=== PATIENT | female | born 1930 | race Caucasian/White ===

== ENCOUNTER 2016-06-25 19:52 | Inpatient (IN) ==
[2016-06-25] MEDS ORDERED: 0.9 % SODIUM CHLORIDE 1,000 ML IV ONE (20:23)
--- NOTE | 2016-06-25 20:26 | Emergency Department Note ---
Female Urogenital HPI - General Chief complaint: Urogenital-Female Stated complaint: UTI symptoms Time Seen by Provider: 06/25/16 20:23 Source: family Mode of arrival: wheelchair Limitations: no limitations - History of Present Illness HPI Narrative: Him on a dysphasia secondary to an ER in [place] and diagnosed with UTI however the culture did not grow any pathologic bacteria. Cephalosporin for couple days perked up and felt quite a bit better. However today she developed diarrhea and weakness and was brought over here by son to visit another son. She denies any pain anywhere minimal cough. - Related Data Home Medications Medication Instructions Recorded Confirmed Acetaminophen [Acetaminophen Extra 500 mg PO PRN PRN 06/26/16 06/26/16 Strength] Ascorbic Acid [Vitamin C] 06/26/16 Calcium 600 + Vit D Tablet 600 PO HS 06/26/16 Cefdinir 300 mg PO BID 06/26/16 06/26/16 Losartan [Cozaar] 25 mg PO DAILY 06/26/16 06/26/16 Allergies Allergy/AdvReac Type Severity Reaction Status Date / Time codeine Allergy Verified 06/25/16 19:58 Review of Systems Constitutional: Denies: fever, chills Eyes: Denies: eye pain ENT ED: Denies: ear pain Cardiovascular: Denies: chest pain Respiratory: Reports: cough. Denies: dyspnea Gastrointestinal: Reports: diarrhea. Denies: abdominal pain, nausea Genitourinary: Denies: urgency, dysuria, frequency Musculoskeletal: Denies: back pain Integumentary: Denies: rash Neurological: Denies: headache Past Medical History - Past Medical History Medical history: Reports: hypertension, valvular heart disease (rheumatic fever) Surgical history ED: Reports: appendectomy, hysterectomy Physical Exam - General Limitations: no limitations General appearance: alert - Head Head exam: atraumatic - Eye Eye exam: Present: normal appearance - ENT ENT exam: mucous membranes dry - Neck Neck exam: Present: normal inspection - Chest Chest inspection: Present: normal inspection - Respiratory Respiratory exam: Present: normal lung sounds bilaterally - Cardiovascular Cardiovascular exam: Present: regular rate, normal rhythm, systolic murmur - Abdominal Exam Abdominal exam: Present: soft. Absent: distention, tenderness - Neurological Exam Neurological exam: Present: alert - Expanded Neurological Exam Cranial nerves: facial palsy (VII): Normal Motor strength - LUE: 5/5 Motor strength - RUE: 5/5 - Psychiatric Psychiatric exam: Present: normal affect, normal mood - Skin Skin exam: Present: warm, dry Course Vital Signs Temperature 98.3 F 06/25/16 19:59 Pulse Rate 81 06/25/16 19:59 Respiratory Rate 19 06/25/16 19:59 Blood Pressure 154/76 06/25/16 19:59 Pulse Oximetry (%) 98 06/25/16 19:59 Temperature 98.6 F 06/26/16 03:53 Pulse Rate 76 06/26/16 03:53 Respiratory Rate 20 06/26/16 03:53 Blood Pressure 150/68 06/26/16 03:53 Pulse Oximetry (%) 95 06/26/16 03:53 Urogenital-Female - MDM Narrative Medical decision making narrative: This patient has had a diarrheal syndrome today which has made her very weak. She is unable to walk. She is dehydrated. I did give her Levaquin empirically given her high white count and diarrhea. She will be admitted to the hospital. - Lab Data Lab results reviewed: Yes I reviewed the patient's lab results. Result diagrams: 06/26/16 04:15 06/26/16 04:15 Lab Results 06/25/16 06/25/16 06/25/16 Range/Units 20:15 20:15 20:15 WBC 15.8 H (4.5-11.0) K/mcL RBC 4.02 (4.00-5.20) M/mcL Hgb 11.7 L (12.0-15.0) g/dL Hct 36.2 (36.0-48.0) % MCV 89.9 (80.0-100.0) fL MCH 29.0 (26.0-34.0) pg MCHC 32.3 (31.0-36.0) g/dL RDW 11.6 (11.5-14.5) % Plt Count 246 (140-440) K/mcL MPV 7.9 (7.4-10.4) fL Total Counted 100 Seg Neutrophils % 88 H (38-78) % Band Neutrophils % 4 (0-10) % Lymphocytes % 2 L (15-49) % Monocytes % (Manual) 5 (1-9) % Eosinophils % (Manual) 1 (0-7) % WBC Morphology Normal (NORMAL) Platelet Estimate Normal (NORMAL) RBC Morphology Normal (NORMAL) VBG Lactic Acid 1.1 (0.5-2.2) mmol/L Sodium 134 (133-145) mmol/L Potassium 4.4 (3.3-5.1) mmol/L Chloride 95 L (96-108) mmol/L Carbon Dioxide 23 (22-30) mmol/L Anion Gap 16.0 (8-16) BUN 25 H (8-23) mg/dl Creatinine 1.0 (0.6-1.1) mg/dl GFR Calculation 52 Glucose 120 H (70-105) mg/dL Calcium 8.8 (8.6-10.4) mg/dl Total Bilirubin 0.3 (0.0-1.0) mg/dL AST 18 (0-37) U/l ALT 13 (0-40) U/l Alkaline Phosphatase 105 (39-117) U/L Total Protein 6.4 (5.9-8.4) gm/dL Albumin 3.0 L (3.2-5.2) gm/dL Globulin 3.4 (2.2-3.7) gm/dL Albumin/Globulin Ratio 0.9 L (1.0-2.3) Urine Color Urine Appearance Urine pH (5.0-9.0) Ur Specific [place] (1.000-1.035) Urine Protein (NEG) mg/dL Urine Glucose (UA) (NEG) mg/dL Urine Ketones (NEG) mg/dL Urine Occult Blood (<0.03) mg/dL Urine Nitrate (NEG) Urine Bilirubin (NEG) mg/dL Urine Urobilinogen (NEG) mg/dL Ur Leukocyte Esterase (NEG) /uL Urine RBC (0-1) /hpf Urine WBC (0-4) /hpf Ur Squamous Epith Cells (0-4) /hpf Ur Transition Epith Cell (0-2) /hpf Amorphous Crystals (0) /hpf Urine Bacteria (0) /hpf Hyaline Casts (0-2) /lpf Urine Mucus (0) /hpf Ur Culture Indicated? 06/25/16 Range/Units 20:23 WBC (4.5-11.0) K/mcL RBC (4.00-5.20) M/mcL Hgb (12.0-15.0) g/dL Hct (36.0-48.0) % MCV (80.0-100.0) fL MCH (26.0-34.0) pg MCHC (31.0-36.0) g/dL RDW (11.5-14.5) % Plt Count (140-440) K/mcL MPV (7.4-10.4) fL Total Counted Seg Neutrophils % (38-78) % Band Neutrophils % (0-10) % Lymphocytes % (15-49) % Monocytes % (Manual) (1-9) % Eosinophils % (Manual) (0-7) % WBC Morphology (NORMAL) Platelet Estimate (NORMAL) RBC Morphology (NORMAL) VBG Lactic Acid (0.5-2.2) mmol/L Sodium (133-145) mmol/L Potassium (3.3-5.1) mmol/L Chloride (96-108) mmol/L Carbon Dioxide (22-30) mmol/L Anion Gap (8-16) BUN (8-23) mg/dl Creatinine (0.6-1.1) mg/dl GFR Calculation Glucose (70-105) mg/dL Calcium (8.6-10.4) mg/dl Total Bilirubin (0.0-1.0) mg/dL AST (0-37) U/l ALT (0-40) U/l Alkaline Phosphatase (39-117) U/L Total Protein (5.9-8.4) gm/dL Albumin (3.2-5.2) gm/dL Globulin (2.2-3.7) gm/dL Albumin/Globulin Ratio (1.0-2.3) Urine Color Yellow Urine Appearance Hazy Urine pH 5.0 (5.0-9.0) Ur Specific [place] 1.024 (1.000-1.035) Urine Protein 30 A (NEG) mg/dL Urine Glucose (UA) 50 A (NEG) mg/dL Urine Ketones 20 A (NEG) mg/dL Urine Occult Blood 0.03 A (<0.03) mg/dL Urine Nitrate Neg (NEG) Urine Bilirubin Neg (NEG) mg/dL Urine Urobilinogen Neg (NEG) mg/dL Ur Leukocyte Esterase Neg (NEG) /uL Urine RBC 2 H (0-1) /hpf Urine WBC 1 (0-4) /hpf Ur Squamous Epith Cells < 1 (0-4) /hpf Ur Transition Epith Cell < 1 (0-2) /hpf Amorphous Crystals Few A (0) /hpf Urine Bacteria Few A (0) /hpf Hyaline Casts 3 H (0-2) /lpf Urine Mucus Mod (0) /hpf Ur Culture Indicated? Yes Disposition Clinical Impression: Gastroenteritis Disposition: Xfer As Inpt ([facility]) Condition: Good
[2016-06-25 20:58] LABS: Mean Cell Volume 89.9 fL (80.0-100.0); Mean Corpuscular HGB Conc 32.3 g/dL (31.0-36.0); Platelet Count 246 K/mcL (140-440); RBC 4.02 M/mcL (4.00-5.20); Red Cell Distribution Width 11.6 % (11.5-14.5)
[2016-06-25 21:14] LABS: Appearance,Urine HAZY; Bacteria,Urine FEW /hpf (0); Bilirubin,Urine NEG (NEG); Color,Urine YELLOW; Glucose,Urine (UA) 50 mg/dL (NEG); Leukocyte Esterase,Urine NEG /uL (NEG); Mucus,Urine MOD /hpf (0); Nitrate,Urine NEG (NEG); Protein,Urine 30 mg/dL (NEG); Specific Gravity,Urine 1.024 (1.000-1.035); Urine Amorphous Crystals FEW /hpf (0); Urine Blood 0.03 mg/dL (<0.03); Urine Hyaline Cast 3 /lpf (0-2); Urine RBC 2 /hpf (0-1); Urine Squamous Epithelial Cell < 1 /hpf (0-4); Urine Transitional Epi Cells < 1 /hpf (0-2); Urine WBC 1 /hpf (0-4); Urobilinogen,Urine NEG (NEG)
[2016-06-25 21:16] LABS: ALT/SGPT 13 U/l (0-40); Albumin/Globulin Ratio 0.9 (1.0-2.3); Alkaline Phosphatase 105 U/L (39-117); Blood Urea Nitrogen 25 mg/dl (8-23)
[2016-06-25 21:58] LABS: Band Neutrophils % 4 % (0-10); Eosinophils % (Manual) 1 % (0-7); Lymphocytes % 2 % (15-49); Monocytes % (Manual) 5 % (1-9); Platelet Estimate NORMAL (NORMAL); RBC Morphology NORMAL (NORMAL); Segmented Neutrophils % 88 % (38-78)
[2016-06-25] MEDS ORDERED: LEVOFLOXACIN 500 MG/100 ML BAG IV ONE (22:07)
--- NOTE | 2016-06-25 23:49 | Internal Med History&Physical ---
Medical - H&P: HPI Patient information: Note initiated : 06/25/16 at 11:45 pm Service Date, if different from initiated Date: [] Patient: Mary Lou Leiva 85 y/o F admitted on for UTI symptoms. Chief Complaint: [] History of present illness: Ms. Leiva is a 85 year old female with h/o htn, rheumatic fever, presents to the Er with complaints of not feeling well for the last 1 week As per the patient and the son, who was the primary provider of information. The patient last tuesday while walking was confused and started to run, she ran for approximately 20-30 feet and fell down, pt does not have recollection of this. She was later on tuesday taken to the ER where she was diagnosed with UTI, and started on cefdinir. The patent has been taking the antibiotic which apparently helped her for a short duration, but then later she started to develop diarrhea, multiple times a day with stool incontinence, associated with some belching. No blood or mucous in the stools. The patient became more confused again and weak. She notes that she does nt take any medications at home as they react very strongly with her. She avoids to drink excess water as it causes her to urinate often, and she uses pads. She denies any fever or chills, no nausea, no cough, no shortness of breath or chest pains. - Constitutional Constitutional: Present: fatigue, malaise, weakness. Absent: chills, fever(s) - EENT Eyes: Absent: blurry vision, change in vision Nose, mouth and throat: Absent: abnormal hearing, bleeding gums - Cardiovascular Cardiovascular: Absent: chest pain, chest pain at rest, orthopnea, pedal edema, radiating pain, syncope - Respiratory Respiratory: Absent: cough, dyspnea, excessive phlegm production, change in phlegm color - Gastrointestinal Gastrointestinal: Present: diarrhea. Absent: abdominal pain, constipation, nausea, vomiting - Genitourinary Genitourinary: Present: urinary frequency, urinary incontinence - Integumentary Integumentary: Absent: wounds, jaundice - Neurological Neurological: Present: confusion, weakness. Absent: convulsions, disequilibrium , dizziness, focal weakness, headache(s), syncope - Psychiatric Psychiatric: Present: confusion. Absent: behavioral changes, panic attacks - Endocrine Endocrine: Absent: polydipsia, polyphagia, polyuria - Hematologic/Lymphatic Hematologic/Lymphatic: Absent: easy bleeding, easy bruising - Allergic/Immunologic Allergic/Immunologic: Absent: uticaria, wheezing Medical - H&P: PMH Medical history: HTN Rheumatic feer h/op UTI Surgical history: appendectomy hystrectomy gastrectomy? (h/o stomach ulcers) Family history: reviewed and not pertinent Social history: lives with son in [place], planning to move here no smoking social etoh no recreational drugs Medical - H&P: Meds Allergies Allergy/AdvReac Type Severity Reaction Status Date / Time codeine Allergy Verified 06/25/16 19:58 Medical - H&P: Exam - Constitutional Vitals: Temp Pulse Resp BP Pulse Ox 98.3 F 82 19 98/86 96 06/25/16 19:59 06/25/16 23:00 06/25/16 19:59 06/25/16 23:00 06/25/16 23:00 General appearance: cooperative, thin - Head Head exam: Present: atraumatic, normal inspection, normocephalic - Eye Eye exam: Present: PERRL. Absent: periorbital swelling, periorbital tenderness , scleral icterus - ENT ENT exam: Present: mucous membranes dry, normal external ear exam - Neck Neck exam: Present: normal inspection - Respiratory Respiratory exam: Present: normal respiratory exam. Absent: accessory muscle use, rhonchi, stridor, wheezes - Cardiovascular Cardiovascular exam: Present: normal rate and rhythm, +S1, +S2, systolic murmur (aortic region 2/6) - GI/Abdominal GI/Abdominal exam: Present: normal bowel sounds, soft. Absent: guarding, rigid , tenderness - Extremities Exam Extremities exam: Absent: calf tenderness, pedal edema, tenderness - Neurological Exam Neurological exam: Present: alert, CN II-XII intact. Absent: motor sensory deficit - Psychiatric Psychiatric exam: Absent: agitated, anxious, depressed Medical - H&P: Reslt - Labs CBC & Chem 7: 06/25/16 20:15 06/25/16 20:15 Labs: Short CBC 06/25/16 Range/Units 20:15 WBC 15.8 H (4.5-11.0) K/mcL Hgb 11.7 L (12.0-15.0) g/dL Hct 36.2 (36.0-48.0) % Plt Count 246 (140-440) K/mcL BMP 06/25/16 20:15 Sodium 134 Potassium 4.4 Chloride 95 L Carbon Dioxide 23 BUN 25 H Creatinine 1.0 Glucose 120 H Calcium 8.8 Liver Function 06/25/16 Range/Units 20:15 Total Bilirubin 0.3 (0.0-1.0) mg/dL AST 18 (0-37) U/l ALT 13 (0-40) U/l Alkaline Phosphatase 105 (39-117) U/L Albumin 3.0 L (3.2-5.2) gm/dL Urine 06/25/16 Range/Units 20:23 Urine Color Yellow Urine Appearance Hazy Urine pH 5.0 (5.0-9.0) Ur Specific [place] 1.024 (1.000-1.035) Urine Protein 30 A (NEG) mg/dL Urine Glucose (UA) 50 A (NEG) mg/dL Medical - H&P: A/P (1) Urinary tract infection Current visit: Yes Status: Acute (2) Diarrhea Current visit: Yes Status: Acute (3) Sepsis Current visit: Yes Status: Acute (4) Clostridium difficile diarrhea Current visit: Yes Status: Acute (5) Hypertension Current visit: Yes Status: Acute - Narrative A/P Narrative: This is a pleasant 85 yr female who presents to the Er with dehydration, diarrhea, with recent use of antibiotics for UTI. The UA done at [facility] did not grow any specific bacteria. urine culture sent again, Levofloxacin was given in the ER X ray chest shows increased interstitial markings, official read pending. Pt has no resp symptoms Her diarrhea with recent ABX use raises the suspicion for cdiff, stool sent for same, Start on po vancomycin solution For dehydration _ IV fluids for now, HTN - is non compliant with meds, montor for now, consider adding low dose of morenita inhibitor if needed DVT heparin Diet regular Code DNR
[2016-06-26] MEDS ORDERED: LIDOCAINE 1% 20 ML VIAL SQ ONE (00:05)
[2016-06-26] MEDS ORDERED: IOPAMIDOL 100 ML BOTTLE IV ONE (00:05)
[2016-06-26] MEDS ORDERED: ACETAMINOPHEN 325 MG TABLET PO PRN (00:14)
[2016-06-26] MEDS ORDERED: ONDANSETRON 4 MG/2 ML VIAL IV PRN (00:14)
[2016-06-26] MEDS ORDERED: VANCOMYCIN 500 MG VIAL ONE (00:20)
[2016-06-26] MEDS: VANCOMYCIN ORAL SOL 1,000 MG/10 ML BOTTLE PO SCH ×5 (00:25→21:01)
[2016-06-26] MEDS: 0.9 % SODIUM CHLORIDE 1,000 ML IV SCH ×3 (02:09→21:03)
[2016-06-26] MEDS: 0.9 % SODIUM CHLORIDE 10 ML SYRINGE IV SCH ×3 (04:25→21:03)
[2016-06-26 05:39] LABS: Mean Cell Volume 90.1 fL (80.0-100.0); Mean Corpuscular HGB Conc 32.2 g/dL (31.0-36.0); Platelet Count 211 K/mcL (140-440); RBC 3.46 M/mcL (4.00-5.20); Red Cell Distribution Width 11.6 % (11.5-14.5)
[2016-06-26 05:59] LABS: ALT/SGPT 9 U/l (0-40); Albumin 2.6 gm/dL (3.2-5.2); Alkaline Phosphatase 90 U/L (39-117); Bilirubin,Direct < 0.2 mg/dL (0.0-0.3); Blood Urea Nitrogen 20 mg/dl (8-23); Gamma Glutamyl Transpeptidase 41 U/L (5-36); Magnesium 1.8 mg/dL (1.6-2.5); Phosphorous 2.4 mg/dL (2.7-4.5); Uric Acid 3.3 mg/dL (2.5-8.0)
[2016-06-26 06:42] LABS: Band Neutrophils % 1 % (0-10); Eosinophils % (Manual) 2 % (0-7); Lymphocytes % 9 % (15-49); Monocytes % (Manual) 9 % (1-9); Platelet Estimate NORMAL (NORMAL); RBC Morphology NORMAL (NORMAL); Segmented Neutrophils % 79 % (38-78)
[2016-06-26] MEDS: FAMOTIDINE/PF 20 MG/2 ML VIAL IV SCH ×2 (08:37→21:02)
[2016-06-26] MEDS: HEPARIN 5,000 UNIT/ML VIAL SQ SCH ×2 (08:37→21:02)
--- NOTE | 2016-06-26 09:14 | XRay Report ---
HISTORY: Reason for Exam:weak FINDINGS: There are prominent increased interstitial lung markings in both upper lobes. The lungs are mildly hyperinflated. I have no prior study for comparison. The heart size is normal. There is no pleural effusion. There is mild upward retraction of both left and right hilum. 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 There could be superimposed inflammation in the upper lobes. Interpreted and Authenticated by: Miguel Kinsey 06/26/16
--- NOTE | 2016-06-26 14:09 | Internal Med Progress Note ---
Medical - PN: Subj Patient information: Note initiated : 06/26/16 at 2:07 pm Service Date, if different from initiated Date: [] Patient: Mary Lou Leiva 85 y/o F admitted on 06/26/16 for UTI symptoms. Chief Complaint: [] Interval history: The patient seen examined this AM doing much better no acute complaints still reports diarrhea Pertinent ROS: Denies headache, dizziness Denies chest pain, palpitations Denies cough or shortness of breath Denies abdominal pain, nausea or vomiting. - Constitutional Vitals: Vital Signs Temp Pulse Resp BP Pulse Ox 98.6 F 76 20 164/73 93 06/26/16 12:00 06/26/16 03:53 06/26/16 12:00 06/26/16 12:00 06/26/16 12:00 Period Temp Pulse Resp BP Sys/Floyd Pulse Ox Last 24 Hr 98.1 F-99.0 F 76-81 16-20 148-164/68-73 92-97 Intake and Output 06/26/16 06/26/16 06/26/16 05:59 13:59 21:59 Intake Total 360 / 1460 400 / 400 Output Total 3 / 3 Balance 360 / 1460 397 / 397 Intake & Output: Intake & Output 06/26/16 06/26/16 06/26/16 05:59 13:59 21:59 Intake Total 360 / 1460 400 / 400 Output Total 3 / 3 Balance 360 / 1460 397 / 397 Intake: Oral 360 / 360 400 / 400 Output: # of times incontinent of 3 / 3 urine Other: Meal Breakfast Percent of Meal Consumed 25% Feeding Ability Assist with Tray Set Up # Bowel Movements 2 Exam: Constitutional; Afebrile, cooperative, alert, not in distress. Eyes- No icterus, Pupils equal, reactive, No periorbital swelling Ears- Ext ear normal, hearing normal to conversation. Neck- Midline trachea, supple Respiratory system: Air Entry equal on both sides, No crackles or wheezing, no rhonchi. CVS- Rate rhythm regular, S1,S2 heard, no gallop, no rub. Abdomen- Soft nontender abdomen, no organomegaly, no tenderness, no guarding or rigidity, RESP THERAPIST- AOOx2, moving all extremities, no focal deficit noted. Medical - PN: Obj Da - Labs CBC & Chem 7: 06/26/16 04:15 06/26/16 04:15 Labs: Abnormal Lab Results 06/26/16 06/26/16 04:15 04:15 WBC 12.1 H RBC 3.46 L Hgb 10.0 L Hct 31.2 L Seg Neutrophils % 79 H Lymphocytes % 9 L Calcium 7.6 L Phosphorus 2.4 L GGT 41 H Lactate Dehydrogenase 307 H Total Protein 5.3 L Albumin 2.6 L Meds: Medications Acetaminophen (Tylenol) 650 mg PO Q6HP PRN PRN Reason: PAIN/FEVER > 101 Famotidine (Pepcid) 20 mg IV Q12 [facility] Last Admin: 06/26/16 08:37 Dose: 20 mg Heparin Sodium (Porcine) (Heparin) 5,000 unit SQ Q12 [facility] Last Admin: 06/26/16 08:37 Dose: 5,000 unit Sodium Chloride (Sodium Chloride 0.9%) 1,000 mls @ 100 mls/hr IV .Q10H [facility] Stop: 06/27/16 06:13 Last Admin: 06/26/16 10:41 Dose: Not Given Lisinopril (Zestril) 2.5 mg PO DAILY [facility] Ondansetron HCl (Zofran) 4 mg IV Q6HP PRN PRN Reason: Nausea And Vomiting Sodium Chloride (Saline Flush) 10 ml IV Q8 [facility] Last Admin: 06/26/16 04:25 Dose: Not Given Vancomycin HCl (Vancomycin Oral Raya) 250 mg PO QID [facility] Last Admin: 06/26/16 13:28 Dose: 250 mg Medical - PN: A/P - Time Spent With Patient Total time spent is greater than 50% in coordination of care (as documented) at patient's floor/unit and/or counseling patient: (1) Urinary tract infection Status: Acute Current Visit: Yes (2) Sepsis Status: Inactive Current Visit: Yes (3) Clostridium difficile diarrhea Status: Acute Current Visit: Yes (4) Hypertension Status: Acute Current Visit: Yes - Narrative A/P Narrative: The patient has Cdiff diarrhea, on PO vancomycin, wBC trending down, continue same, total 14 days treatment Dehydration- On IV fluids, continue same, improving hydration status. I do not think UTI needs to be treated any more, will not start any other antibiotic, follow cultures. HTN on the higher end, start on low dose of lisinopril, was supposed to be on losartan, but was not taking any medications because of dizziness. Medical - PN: Qual - VTE Deep Vein Thrombosis/Pulmonary Embolism Present on Admission: No
[2016-06-27] MEDS: 0.9 % SODIUM CHLORIDE 1,000 ML IV SCH ×2 (00:48→13:02)
[2016-06-27] MEDS: 0.9 % SODIUM CHLORIDE 10 ML SYRINGE IV SCH ×3 (05:54→21:32)
[2016-06-27 06:32] LABS: Basophils # (Auto) 0.1 K/mcL (0.0-0.3); Basophils % (Auto) 0.9 % (0.0-2.0); Eosinophils # (Auto) 0.4 K/mcL (0.0-0.7); Eosinophils % (Auto) 3.1 % (0.0-7.0); Granulocytes % (Auto) 78.3 % (38.0-78.0); Lymphocytes % (Auto) 8.3 % (15.5-49.0); Mean Cell Volume 88.9 fL (80.0-100.0); Mean Corpuscular HGB Conc 33.5 g/dL (31.0-36.0); Mean Corpuscular Hemoglobin 29.8 pg (26.0-34.0); Monocytes # (Auto) 1.2 K/mcL (0.1-0.9); Monocytes % (Auto) 9.4 % (1.0-9.0); Platelet Count 220 K/mcL (140-440); RBC 3.42 M/mcL (4.00-5.20); Red Cell Distribution Width 11.4 % (11.5-14.5)
[2016-06-27] MEDS: FAMOTIDINE/PF 20 MG/2 ML VIAL IV SCH ×2 (08:11→21:28)
[2016-06-27] MEDS: VANCOMYCIN ORAL SOL 1,000 MG/10 ML BOTTLE PO SCH ×4 (08:11→21:27)
[2016-06-27] MEDS: HEPARIN 5,000 UNIT/ML VIAL SQ SCH ×2 (08:11→21:28)
[2016-06-27] MEDS: LISINOPRIL 5 MG TABLET PO SCH (08:12)
[2016-06-27 08:37] LABS: ALT/SGPT 10 U/l (0-40); Albumin 2.5 gm/dL (3.2-5.2); Albumin/Globulin Ratio 0.9 (1.0-2.3); Alkaline Phosphatase 83 U/L (39-117); Bilirubin,Direct < 0.2 mg/dL (0.0-0.3); Blood Urea Nitrogen 10 mg/dl (8-23); Gamma Glutamyl Transpeptidase 37 U/L (5-36); Magnesium 1.7 mg/dL (1.6-2.5); Uric Acid 2.6 mg/dL (2.5-8.0)
--- NOTE | 2016-06-27 12:16 | Internal Med Progress Note ---
Medical - PN: Subj Patient information: Note initiated : 06/27/16 at 12:13 pm Service Date, if different from initiated Date: [] Patient: Mary Lou Leiva 85 y/o F admitted on 06/26/16 for UTI symptoms. Chief Complaint: [] Interval history: The patient seen exained sitting comfortably in her chair no acute complaints no acute overnight events Reports normal BM today Her labs show that her wbc count went up this AM, no c ough, fever or urinary issues. Patient is tolerating po diet well, Pertinent ROS: Denies headache, dizziness Denies chest pain, palpitations Denies cough or shortness of breath Denies abdominal pain, nausea or vomiting. - Constitutional Vitals: Vital Signs Temp Pulse Resp BP Pulse Ox 97.7 F 75 20 144/74 97 06/27/16 08:54 06/27/16 03:59 06/27/16 08:54 06/27/16 08:54 06/27/16 08:54 Period Temp Pulse Resp BP Sys/Floyd Pulse Ox Last 24 Hr 97.1 F-100 F 75-80 16-24 144-161/64-80 95-97 Intake and Output 06/26/16 06/27/16 06/27/16 21:59 05:59 13:59 Intake Total 50 / 50 200 / 200 Output Total 250 / 250 Balance - 48 / 48 -50 / -50 Weight 96 lb 8 oz Intake & Output: Intake & Output 06/26/16 06/27/16 06/27/16 21:59 05:59 13:59 Intake Total 50 / 50 200 / 200 Output Total 250 / 250 Balance - 48 / 48 -50 / -50 Weight 96 lb 8 oz Intake: Oral 50 / 50 200 / 200 Output: Void Amount 200 / 200 250 / 250 # of times incontinent of 2 / 2 2 / 2 urine Other: Meal Breakfast Percent of Meal Consumed 75% Feeding Ability Independent # Voids 1 # Bowel Movements 1 1 Exam: Constitutional; Afebrile, cooperative, alert, not in distress. Eyes- No icterus, No periorbital swelling Ears- Ext ear normal, hearing hard to conversation. Neck- Midline trachea, supple Respiratory system: Air Entry equal on both sides, No crackles or wheezing, no rhonchi. CVS- Rate rhythm regular, S1,S2 heard, no gallop, no rub. Abdomen- Soft nontender abdomen, no organomegaly, no tenderness, no guarding or rigidity, SU[employer]ING- AOOx2, moving all extremities, no focal deficit noted. Medical - PN: Obj Da - Labs CBC & Chem 7: 06/27/16 04:35 06/27/16 07:20 Labs: Abnormal Lab Results 06/27/16 06/27/16 06/26/16 07:20 04:35 04:15 WBC 12.4 H RBC 3.42 L Hgb 10.2 L Hct 30.4 L RDW 11.4 L Gran % 78.3 H Lymph % (Auto) 8.3 L [place] % (Auto) 9.4 H Gran # 9.7 H Lymph # 1.0 L [place] # 1.2 H Seg Neutrophils % Lymphocytes % Carbon Dioxide 21 L Calcium 7.8 L 7.6 L Phosphorus 2.0 L 2.4 L GGT 37 H 41 H Lactate Dehydrogenase 271 H 307 H Total Protein 5.2 L 5.3 L Albumin 2.5 L 2.6 L Albumin/Globulin Ratio 0.9 L 06/26/16 04:15 WBC 12.1 H RBC 3.46 L Hgb 10.0 L Hct 31.2 L RDW Gran % Lymph % (Auto) [place] % (Auto) Gran # Lymph # [place] # Seg Neutrophils % 79 H Lymphocytes % 9 L Carbon Dioxide Calcium Phosphorus GGT Lactate Dehydrogenase Total Protein Albumin Albumin/Globulin Ratio Meds: Medications Acetaminophen (Tylenol) 650 mg PO Q6HP PRN PRN Reason: PAIN/FEVER > 101 Famotidine (Pepcid) 20 mg IV Q12 [facility] Last Admin: 06/27/16 08:11 Dose: 20 mg Heparin Sodium (Porcine) (Heparin) 5,000 unit SQ Q12 [facility] Last Admin: 06/27/16 08:11 Dose: 5,000 unit Sodium Chloride (Sodium Chloride 0.9%) 1,000 mls @ 50 mls/hr IV .Q20H [facility] Lisinopril (Zestril) 2.5 mg PO DAILY [facility] Last Admin: 06/27/16 08:12 Dose: 2.5 mg Ondansetron HCl (Zofran) 4 mg IV Q6HP PRN PRN Reason: Nausea And Vomiting Sodium Chloride (Saline Flush) 10 ml IV Q8 [facility] Last Admin: 06/27/16 05:54 Dose: 10 ml Vancomycin HCl (Vancomycin Oral Raya) 250 mg PO QID [facility] Last Admin: 06/27/16 08:11 Dose: 250 mg Medical - PN: A/P - Time Spent With Patient Total time spent is greater than 50% in coordination of care (as documented) at patient's floor/unit and/or counseling patient: (1) Urinary tract infection Status: Acute Current Visit: Yes (2) Clostridium difficile diarrhea Status: Acute Current Visit: Yes (3) Hypertension Status: Acute Current Visit: Yes - Narrative A/P Narrative: Patient continues to do well contiue with hydration and PO vancomycin for cdiff Will monitor for add day given her WBC count went up today Anticipate D/c Home tomorrow PT eval appreciated, will need assisted device to prevent falls, DVT hep sq Medical - PN: Qual - VTE Deep Vein Thrombosis/Pulmonary Embolism Present on Admission: No
[2016-06-28 05:53] LABS: Basophils # (Auto) 0 K/mcL (0.0-0.3); Basophils % (Auto) 0.2 % (0.0-2.0); Eosinophils # (Auto) 0.6 K/mcL (0.0-0.7); Eosinophils % (Auto) 4.1 % (0.0-7.0); Granulocytes % (Auto) 77.8 % (38.0-78.0); Lymphocytes # (Auto) 1.2 K/mcL (1.5-4.8); Lymphocytes % (Auto) 8.9 % (15.5-49.0); Mean Cell Volume 89.7 fL (80.0-100.0); Mean Corpuscular HGB Conc 32.2 g/dL (31.0-36.0); Mean Corpuscular Hemoglobin 28.9 pg (26.0-34.0); Monocytes # (Auto) 1.2 K/mcL (0.1-0.9); Platelet Count 232 K/mcL (140-440)
[2016-06-28 06:21] LABS: ALT/SGPT 10 U/l (0-40); Albumin 2.2 gm/dL (3.2-5.2); Albumin/Globulin Ratio 0.8 (1.0-2.3); Alkaline Phosphatase 84 U/L (39-117); Bilirubin,Direct < 0.2 mg/dL (0.0-0.3); Blood Urea Nitrogen 8 mg/dl (8-23); Gamma Glutamyl Transpeptidase 36 U/L (5-36); Magnesium 1.8 mg/dL (1.6-2.5); Phosphorous 1.9 mg/dL (2.7-4.5); Uric Acid 2.6 mg/dL (2.5-8.0)
[2016-06-28] MEDS: 0.9 % SODIUM CHLORIDE 1,000 ML IV SCH ×2 (07:26→20:22)
--- NOTE | 2016-06-28 09:06 | XRay Report ---
CLINICAL INFORMATION: Increased white blood cell count COMPARISON: 06/25/2016 FINDINGS: Heart size, mediastinum and pulmonary vessels are unremarkable. COPD changes are noted. Small bilateral pleural effusions are appreciated. No definite infiltrates. Mild old compression fracture of the upper mid thoracic spine again noted IMPRESSION: COPD changes with small bilateral pleural effusions. No infiltrates appreciated Interpreted and Authenticated by: Aly Lopes 06/28/16
[2016-06-28] MEDS: LISINOPRIL 5 MG TABLET PO SCH (10:23)
[2016-06-28] MEDS: NEUTRA PHOS 1 PACKET PO SCH ×2 (10:23→20:25)
[2016-06-28] MEDS: HEPARIN 5,000 UNIT/ML VIAL SQ SCH ×2 (10:24→20:13)
[2016-06-28] MEDS: FAMOTIDINE/PF 20 MG/2 ML VIAL IV SCH ×2 (10:24→20:12)
[2016-06-28] MEDS: VANCOMYCIN ORAL SOL 1,000 MG/10 ML BOTTLE PO SCH ×4 (10:24→20:12)
[2016-06-28] MEDS: 0.9 % SODIUM CHLORIDE 10 ML SYRINGE IV SCH ×3 (10:25→20:25)
--- NOTE | 2016-06-28 13:29 | Internal Med Progress Note ---
Medical - PN: Subj Patient information: Note initiated : 06/28/16 at 1:27 pm Service Date, if different from initiated Date: [] Patient: Mary Lou Leiva 85 y/o F admitted on 06/26/16 for UTI Symptoms/UTI, Sepsis, Diarrhea. Chief Complaint: [] Interval history: The patient is seen examined no acute overnight events doing well tolerating po Labs reviwed with her and her son. WBC count is still trending up X ray chset done today is negative. discussed that given improvement in Cdiff we would expect improvement in wbc, but uprending wbc is c onderning. Plan to get CT chest abdomen and pelvis. Patient agreeable to same. Pertinent ROS: Denies headache, dizziness Denies chest pain, palpitations Denies cough or shortness of breath Denies abdominal pain, nausea or vomiting. - Constitutional Vitals: Vital Signs Temp Pulse Resp BP Pulse Ox 97.5 F L 81 18 152/80 95 06/28/16 12:00 06/28/16 12:00 06/28/16 12:00 06/28/16 12:00 06/28/16 12:00 Period Temp Pulse Resp BP Sys/Floyd Pulse Ox Last 24 Hr 97.5 F-99.7 F 72-94 18-24 129-185/66-80 92-97 Intake and Output 06/27/16 06/28/16 06/28/16 21:59 05:59 13:59 Intake Total 450 / 450 50 / 50 200 / 200 Output Total 2 / 2 1 Balance 450 / 450 48 / 48 199 / 199 Weight 99 lb 8 oz 99 lb 8 oz Patient Weight 06/29/16 05:59 Weight 99 lb 8 oz Intake & Output: Intake & Output 06/27/16 06/28/16 06/28/16 21:59 05:59 13:59 Intake Total 450 / 450 50 / 50 200 / 200 Output Total 2 / 2 1 Balance 450 / 450 48 / 48 199 / 199 Weight 99 lb 8 oz 99 lb 8 oz Intake: Oral 450 / 450 50 / 50 200 / 200 Output: # of times incontinent of 2 / 2 urine Other: Meal Breakfast Percent of Meal Consumed 50% Feeding Ability Assist with Tray Set Up # Voids 1 # Bowel Movements 1 1 Exam: Constitutional; Afebrile, cooperative, alert, not in distress. Eyes- No icterus, Pupils equal, reactive, No periorbital swelling Ears- Ext ear normal, hearing normal to conversation. Neck- Midline trachea, supple Respiratory system: Air Entry equal on both sides, No crackles or wheezing, no rhonchi. CVS- Rate rhythm regular, S1,S2 heard, no gallop, no rub. Abdomen- Soft nontender abdomen, no organomegaly, no tenderness, no guarding or rigidity, DISTRICT SUPERVISOR- AOOx3, moving all extremities, no focal deficit noted. Medical - PN: Obj Da - Labs CBC & Chem 7: 06/28/16 04:15 06/28/16 04:15 Labs: Abnormal Lab Results 06/28/16 06/28/16 06/27/16 04:15 04:15 07:20 WBC 13.8 H RBC 3.50 L Hgb 10.1 L Hct 31.4 L RDW Gran % Lymph % (Auto) 8.9 L [place] % (Auto) Gran # 10.7 H Lymph # 1.2 L [place] # 1.2 H Seg Neutrophils % Lymphocytes % Carbon Dioxide 21 L 21 L Calcium 7.8 L 7.8 L Phosphorus 1.9 L 2.0 L GGT 37 H Lactate Dehydrogenase 296 H 271 H Total Protein 5.0 L 5.2 L Albumin 2.2 L 2.5 L Albumin/Globulin Ratio 0.8 L 0.9 L 06/27/16 06/26/16 06/26/16 04:35 04:15 04:15 WBC 12.4 H 12.1 H RBC 3.42 L 3.46 L Hgb 10.2 L 10.0 L Hct 30.4 L 31.2 L RDW 11.4 L Gran % 78.3 H Lymph % (Auto) 8.3 L [place] % (Auto) 9.4 H Gran # 9.7 H Lymph # 1.0 L [place] # 1.2 H Seg Neutrophils % 79 H Lymphocytes % 9 L Carbon Dioxide Calcium 7.6 L Phosphorus 2.4 L GGT 41 H Lactate Dehydrogenase 307 H Total Protein 5.3 L Albumin 2.6 L Albumin/Globulin Ratio Meds: Medications Acetaminophen (Tylenol) 650 mg PO Q6HP PRN PRN Reason: PAIN/FEVER > 101 Famotidine (Pepcid) 20 mg IV Q12 REJI Last Admin: 06/28/16 10:24 Dose: 20 mg Heparin Sodium (Porcine) (Heparin) 5,000 unit SQ Q12 [facility] Last Admin: 06/28/16 10:24 Dose: 5,000 unit Sodium Chloride (Sodium Chloride 0.9%) 1,000 mls @ 50 mls/hr IV .Q20H [facility] Last Admin: 06/28/16 07:26 Dose: Not Given Lisinopril (Zestril) 2.5 mg PO DAILY [facility] Last Admin: 06/28/16 10:23 Dose: 2.5 mg Ondansetron HCl (Zofran) 4 mg IV Q6HP PRN PRN Reason: Nausea And Vomiting Potassium/Phosphorus/Sodium (Neutra Phos) 1 packet PO BID [facility] Last Admin: 06/28/16 10:23 Dose: 1 packet Sodium Chloride (Saline Flush) 10 ml IV Q8 [facility] Last Admin: 06/28/16 10:25 Dose: Not Given Vancomycin HCl (Vancomycin Oral Raya) 250 mg PO QID [facility] Last Admin: 06/28/16 10:24 Dose: 250 mg Medical - PN: A/P - Time Spent With Patient Total time spent is greater than 50% in coordination of care (as documented) at patient's floor/unit and/or counseling patient: (1) Urinary tract infection Status: Acute Assessment and plan: neg urine culture not on treatment s/p antibiotics for cystitis. Current Visit: Yes (2) Clostridium difficile diarrhea Status: Acute Assessment and plan: on vancomycin continue same soft stools now. Current Visit: Yes (3) Hypertension Status: Acute Assessment and plan: bp stable, on lisinopril 2.5mg qd continue same Current Visit: Yes (4) Elevated WBC count Status: Acute Assessment and plan: etiology unclera ct chest abdomen and pelvis x ray is neg DVT hep sq DIet regular Current Visit: Yes Medical - PN: Qual - VTE Deep Vein Thrombosis/Pulmonary Embolism Present on Admission: No
--- NOTE | 2016-06-28 15:07 | Cat Scan Report ---
CLINICAL INFORMATION: Increased white blood cell count COMPARISON: None. TECHNIQUE: Enteric contrast was utilized. 80 cc of Isovue-300 were injected intravenously, and 50 seconds later 2.5 mm helical slices were obtained from the lung apices through the subtrochanteric regions of the femurs. Following reconstruction, 2.5 mm sagittal, coronal and axial reformatted images were processed and reviewed at multiple windows and levels. 7 mm MIP reconstructions were obtained through the lungs to optimize nodule detection. FINDINGS: Pulmonary parenchymal windows show moderate chronic bronchitis changes featuring elevated lung volumes, wall thickening, dilatation of all the airways with scattered scarring in both peripheral lungs. There is complete cicitration atelectasis of the medial segment of the right middle lobe. A 3.2 cm infrahilar mass is seen in the left lower lobe - suspicious for primary pulmonary malignancy. Small bilateral pleural effusions are noted. There are scattered pleural plaques in both lung apices. Mediastinal windows show subocclusive emboli within the anterior and medial basilar segmental right lower lobe pulmonary arteries and occlusive emboli within the anterior basilar segmental left lower lobe pulmonary artery. The central pulmonary arteries are mildly enlarged: main pulmonary artery measuring 3.1 cm. Findings suggest mild pulmonary hypertension related to chronic bronchitis and, possibly, pulmonary emboli. The heart is mildly enlarged with extremely heavy fibrofatty calcific plaque in the coronary arteries. Small hiatal hernia is noted. Mildly enlarged lymph nodes within the hilar regions and lower mediastinum - ranging up to 18 mm. The thoracic aorta is unremarkable. Thyroid is normal. Images should the abdomen show a 10 cm inhomogeneous mass infiltrating the entire lateral segment of the left hepatic lobe which features large regions of central necrosis within the irregular thickened peripheral rind and pericapsular edema. There are smaller lesions in the medial segment of the left hepatic lobe and throughout the right lobe ranging up to 2.3 cm. These are all suspicious for metastases. A 12 mm stone is present within the gall bladder neck. The gallbladder and bile ducts are otherwise normal. The CBD measures 6 mm. Both kidneys, adrenal glands, spleen, pancreas and aorta, including aortic branches, are normal in size, configuration and attenuation without focal lesion. The stomach, small and large bowel show mild ileus pattern with moderate colonic stool. Images of pelvis show urinary bladder to be normal. Hysterectomy changes are noted. Bone windows show malunified old fractures of left superior pubic ramus, pubic symphysis and inferior pubic ramus with moderate deformity. There are no osseous metastases IMPRESSION: 1. 10 cm mass infiltrating the entire lateral segment left hepatic lobe with marked central necrosis and pericapsular edema. There are 3-4 smaller low-attenuation lesions scattered throughout the right lobe of the liver. Findings suspicious for scattered hepatic metastases 2. 3.2 cm mass in the infrahilar region of the left lower lobe - suspicious for primary lung carcinoma. Few mildly enlarged bilateral hilar and lower mediastinal lymph nodes may be metastatic 3. Subocclusive emboli within the segmental bilateral lower lobe pulmonary arteries. Mild enlargement of the central pulmonary arteries suggestive associated mild pulmonary hypertension. 4. Moderate chronic bronchitis changes. Small bilateral pleural effusions. Completion cicitration atelectasis - medial segment right middle lobe 5. Mild ileus with a large amount of colonic stool. 6. Solitary 12 mm stone in the gallbladder Interpreted and Authenticated by: Aly Lopes 06/28/16
--- NOTE | 2016-06-28 16:14 | Ultrasound Report ---
ORIGINAL REPORT CLINICAL INFORMATION: Scattered hepatic metastases including diffuse metastatic infiltration of the lateral segment left hepatic lobe. This will be targeted for biopsy COMPARISON: Abdominal CT from 06/28/2016. TECHNIQUE: The procedure including possibility of bleeding, infection, pneumothorax, bowel perforation and bile fistula and pseudoaneurysm were explained to the patient. She understood and wished to proceed. The large infiltrative mass in the lateral segment of the left hepatic lobe was first ultrasound vehicle cost engineer localized. The skin overlying this region was marked, prepped and locally anesthetized with 1% lidocaine using a 25-gauge needle to the level of the lesion capsule. A 17-gauge styletted guide needle was placed under sonographic guidance into the infiltrated mass in the lateral segment left hepatic lobe. Through this guide, an 18-gauge core biopsy needle used to obtain three core samples of the lesion under ultrasound guidance. This tissue samples were sent in formalin to pathology and the needle was washed in normal sterile saline between each pass. The needle was removed. Post procedure scanning shows no hemorrhage or other complication. IMPRESSION: Percutaneous core biopsy of mass infiltrating the entire lateral segment of the left hepatic lobe. It is almost certainly a metastasis. No apparent complication. 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
[2016-06-28 17:39] LABS: Appearance,Urine CLEAR; Bacteria,Urine 0 /hpf (0); Bilirubin,Urine NEG (NEG); Color,Urine STRAW; Glucose,Urine (UA) NEGATIVE (NEG); Leukocyte Esterase,Urine NEG /uL (NEG); Mucus,Urine MOD /hpf (0); Nitrate,Urine NEG (NEG); Protein,Urine NEG (NEG); Specific Gravity,Urine 1.008 (1.000-1.035); Urine Blood 0.03 mg/dL (<0.03); Urine Hyaline Cast 5 /lpf (0-2); Urine RBC < 1 /hpf (0-1); Urine Squamous Epithelial Cell < 1 /hpf (0-4); Urine Transitional Epi Cells < 1 /hpf (0-2); Urine WBC < 1 /hpf (0-4); Urobilinogen,Urine NEG (NEG)
--- NOTE | 2016-06-28 17:57 | Event Note ---
Pt is s/p liver biopsy also has pe which would warrant anticoagulation Radiologist ok to start anticoagulation after biopsy litrature search online did not reveal any specific guidelines, will check cbc in pm, if hb stable start on lovenox and coumadin.
[2016-06-29] MEDS: 0.9 % SODIUM CHLORIDE 1,000 ML IV SCH (04:24)
[2016-06-29] MEDS ORDERED: cloNIDine HCL 0.1 MG TABLET ONE (04:26)
[2016-06-29] MEDS ORDERED: ENOXAPARIN 40 MG/0.4 ML SYRINGE ONE (04:26)
[2016-06-29] MEDS: 0.9 % SODIUM CHLORIDE 10 ML SYRINGE IV SCH ×2 (04:30→13:36)
[2016-06-29] MEDS ORDERED: cloNIDine HCL 0.1 MG TABLET PO SCH (04:30)
[2016-06-29] MEDS: ENOXAPARIN 40 MG/0.4 ML SYRINGE SQ SCH ×2 (04:31→09:44)
[2016-06-29 07:08] LABS: Basophils # (Auto) 0 K/mcL (0.0-0.3); Basophils % (Auto) 0.3 % (0.0-2.0); Eosinophils # (Auto) 0.5 K/mcL (0.0-0.7); Eosinophils % (Auto) 3.6 % (0.0-7.0); Granulocytes % (Auto) 78.5 % (38.0-78.0); Lymphocytes % (Auto) 7.7 % (15.5-49.0); Mean Cell Volume 88.8 fL (80.0-100.0); Mean Corpuscular HGB Conc 32.4 g/dL (31.0-36.0); Mean Corpuscular Hemoglobin 28.7 pg (26.0-34.0); Monocytes # (Auto) 1.3 K/mcL (0.1-0.9); Monocytes % (Auto) 9.9 % (1.0-9.0); Platelet Count 254 K/mcL (140-440); RBC 3.47 M/mcL (4.00-5.20); Red Cell Distribution Width 11.8 % (11.5-14.5)
[2016-06-29] MEDS: NEUTRA PHOS 1 PACKET PO SCH (09:45)
[2016-06-29] MEDS: FAMOTIDINE/PF 20 MG/2 ML VIAL IV SCH (09:46)
[2016-06-29] MEDS: LISINOPRIL 5 MG TABLET PO SCH (09:47)
[2016-06-29] MEDS: VANCOMYCIN ORAL SOL 1,000 MG/10 ML BOTTLE PO SCH ×2 (09:47→13:35)
--- NOTE | 2016-06-29 13:24 | Discharge Summary ---
Medical - DS: Prov Patient information: Note initiated : 06/29/16 at 1:21 pm Service Date, if different from initiated Date: [] Patient: Mary Lou Leiva 85 y/o F admitted on 06/26/16 for UTI Symptoms/UTI, Sepsis, Diarrhea. Chief Complaint: [] Date of admission: 06/26/16 00:04 Discharge date: 06/29/16 Primary care physician: [f_Reg Prim Care Provider] Admitting clinician: Kelvin Moreno Discharging clinician: Kelvin Moreno Medical - DS: Meds - Discharge Medications Prescriptions: Enoxaparin [Lovenox] 40 mg SQ BID #20 syringe Losartan [Cozaar] 25 mg PO DAILY #30 tablet Vancomycin Oral Raya 250 mg PO QID #12 bottle Warfarin [Coumadin] 3 mg PO DAILY@1400 #30 tablet Active and Home Medications: Home Medications Acetaminophen [Acetaminophen Extra Strength] 500 mg PO PRN PRN 06/26/16 [ History Confirmed 06/26/16 Last Taken Unknown] Ascorbic Acid [Vitamin C] 1 tab PO 06/26/16 [History Last Taken Unknown] Cefdinir 300 mg PO BID 06/26/16 [History Confirmed 06/26/16 Last Taken Unknown] Losartan [Cozaar] 25 mg PO DAILY 06/26/16 [History Confirmed 06/26/16 Last Taken Unknown] Medical - DS: Hosp Hospital course: Mr. Leiva is a 85 year old female who presented to the ER with symtoms of weakness and diarrhea, recently being treated for UTI, diagnosed with Cdiff Cdiff diarrhea- Treat with Po vancomycin solution, 250mg qid for total of 14 days, she responded to the treatment well and had normal soft stools on discharge. she needs additional 12 days of abx In the hospital after improvement of her Cdiff the patients wbc kept rising, she therefore underwent a CT chest abdomen and pelvis, which revealed a segmental pulmonary embolism, and tumor in the lung and liver. Pulmonary embolism- due to maliganncy and recent long drive from [place], started on lovenox and coumadin, follow up outpatient for INR check in 3 days, new pcp in 1 week Tumor- Primary? likely lung with mets to liver vs GI pathology, biopsy done by IR USG guided liver results pending. Patient does not want chemo on talking at this time. She needs to follow up with the new doctor for follow up on path results and further management. HTN on losartan 25mg qd, non compliant with treatment, advised to be compliant Family wants the patient go to home and have good support system. Discharge diagnosis: cdiff, pulmonary embolism, metastatic tumor. - Time Spent with Patient Total time spent providing and/or coordinating discharge services: Greater than 30 minutes Medical - DS: Exam - Constitutional Vitals: Vital Signs Temp Pulse Resp BP BP Pulse Ox 06/29/16 12:00 98.5 F 70 20 134/76 98 06/29/16 07:48 95 06/29/16 07:27 97.8 F 66 22 154/64 95 06/29/16 07:15 66 06/29/16 03:45 98.9 F 94 H 22 180/82 94 06/28/16 23:32 98.7 F 64 22 168/68 95 06/28/16 20:00 99.1 F 83 28 H 190/75 95 06/28/16 16:00 99.6 F 73 22 152/78 96 Intake and Output 06/28/16 06/29/16 06/29/16 21:59 05:59 13:59 Intake Total 220 / 220 420 / 420 375 / 375 Output Total 2 / 2 Balance 218 / 218 419 / 419 374 / 374 Intake: Oral 220 / 220 420 / 420 375 / 375 Output: # of times incontinent of 2 urine Other: Meal Dinner Lunch Percent of Meal Consumed 100% 100% Feeding Ability Total Assistance Independent # Voids 2 1 # Bowel Movements 2 1 Weight 99 lb Additional comments: Constitutional; Afebrile, cooperative, alert, not in distress. Eyes- No icterus, Pupils equal, reactive, No periorbital swelling Ears- Ext ear normal, hearing normal to conversation. Neck- Midline trachea, supple Respiratory system: Air Entry equal on both sides, No crackles or wheezing, no rhonchi. CVS- Rate rhythm regular, S1,S2 heard, no gallop, no rub. 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 Medical - DS: Data Labs on day of discharge: Labs from last 24 hours 06/29/16 06/29/16 06/28/16 07:14 05:45 20:56 WBC 13.0 H RBC 3.47 L Hgb 10.0 L 10.3 L Hct 30.8 L 31.7 L MCV 88.8 MCH 28.7 MCHC 32.4 RDW 11.8 Plt Count 254 MPV 8.5 Gran % 78.5 H Lymph % (Auto) 7.7 L [place] % (Auto) 9.9 H Eos % (Auto) 3.6 Baso % (Auto) 0.3 Gran # 10.2 H Lymph # 1.0 L [place] # 1.3 H Eos # 0.5 Baso # 0 POC PT PT 16.0 H POC INR INR 1.2 H Urine Color Urine Appearance Urine pH Ur Specific [place] Urine Protein Urine Glucose (UA) Urine Ketones Urine Occult Blood Urine Nitrate Urine Bilirubin Urine Urobilinogen Ur Leukocyte Esterase Urine RBC Urine WBC Ur Squamous Epith Cells Ur Transition Epith Cell Urine Bacteria Hyaline Casts Urine Mucus Ur Culture Indicated? 06/28/16 06/28/16 06/28/16 17:16 15:08 14:48 WBC RBC Hgb Hct MCV MCH MCHC RDW Plt Count MPV Gran % Lymph % (Auto) [place] % (Auto) Eos % (Auto) Baso % (Auto) Gran # Lymph # [place] # Eos # Baso # POC PT 14.9 PT TNP POC INR 1.3 H INR TNP Urine Color Straw Urine Appearance Clear Urine pH 6.0 Ur Specific [place] 1.008 Urine Protein Neg Urine Glucose (UA) Negative Urine Ketones Neg Urine Occult Blood 0.03 A Urine Nitrate Neg Urine Bilirubin Neg Urine Urobilinogen Neg Ur Leukocyte Esterase Neg Urine RBC < 1 Urine WBC < 1 Ur Squamous Epith Cells < 1 Ur Transition Epith Cell < 1 Urine Bacteria 0 Hyaline Casts 5 H Urine Mucus Mod Ur Culture Indicated? No - Additional Comments CXR chest USG guided liver bx CT chest abdomen and pelvis Medical - DS: A/P - Patient/Caregiver Discharge Instructions Activity: as per physical therapy, increase activity as tolerated Diet: Regular Diet Additional Instructions: Home health upon discharge for Retirement care and continued education for daily Lovenox injections and coumadin therapy. INR in 3 days. Home Physical Therapy. Follow up with new pcp in 7 days for follow up on the liver biopsy. - Problem Maintenance (1) Urinary tract infection Status: Acute (2) Clostridium difficile diarrhea Status: Acute (3) Hypertension Status: Acute (4) Elevated WBC count Status: Acute - Follow up Plan Follow up with: Remington Bishop MD [Physician] - 07/01/16 11:00 am Disposition: Home Health Service Prognosis: Undetermined Rehab Potential: Undetermined I certify that the patient requires SNF services: No Overall status at discharge: patient is progressing back to baseline Medical - DS: Qual - VTE Deep Vein Thrombosis/Pulmonary Embolism Present on Admission: No
[2016-06-29] MEDS ORDERED: WARFARIN 3 MG TABLET PO SCH (14:00)
--- NOTE | 2016-07-01 10:16 | Surgical Pathology Report ---
HISTOLOGY SPECIMEN MICROSCOPIC DIAGNOSIS LIVER, LEFT, IMAGE-GUIDED NEEDLE CORE BIOPSY: -- POORLY-DIFFERENTIATED CARCINOMA, CONSISTENT WITH METASTATIC SQUAMOUS CELL CARCINOMA (SEE COMMENT). (SEClement:mark) COMMENT: The patient's CT findings of a lung mass and multiple liver lesions are noted. Biopsy from the liver mass demonstrates infiltration by a poorly-differentiated epithelial neoplasm with pleomorphic nuclei, prominent macronucleoli, and abundant eosinophilic cytoplasm. Some areas with focal spindle morphology are also appreciated. The tumor cells are strongly CK7 and CK5/6 positive with moderate nuclear staining with p63. The overall morphologic features and immunophenotype are most compatible with metastatic poorly-differentiated squamous cell carcinoma. Clinical and radiographic correlation is recommended. MICROSCOPIC DESCRIPTION Immunohistochemical stains are performed to further evaluate the lesion: Positive stains: CK7, p63, CK5/6 Negative stains: CK20, Melan-A, Napsin-A, TTF-1, Hepatocyte, Mammaglobin, S-100, GCDFP-15, ER Some of the tests reported here may not have been cleared or approved by the U.S. Food and Drug Administration (FDA). However, the FDA has determined that such clearance or approval is not necessary. Pursuant to the requirements of CLIA, this laboratory has established and verified the accuracy and precision of all tests, and additional information about these tests is available upon request. All technical controls are adequate. CLINICAL HISTORY UTI; sepsis; diarrhea. GROSS DESCRIPTION Received in formalin labeled with the patient information and designated as left liver mass, are four cores of white-mckeon to brown-mckeon tissue ranging in size from 0.3 up to 1.7 cm in length and less than 0.1 cm in diameter. They are totally submitted - two cassettes. (KGW:mark) Electronically Signed by: Ania Mathew D.O.
== END 2016-06-29 17:00 | disposition home or self-care (01) | DRG 999 ==
LOC: MEDSUR 19:52 → ED 19:52 → MEDSUR 06-26 00:12 → UNDODISOB 06-29 17:00
PROVIDERS: ADMIT Internal Medicine; ATTEND Internal Medicine

== ENCOUNTER 2016-08-18 15:25 | Inpatient (IN) ==
[2016-08-18] MEDS ORDERED: LACTATED RINGERS 1,000 ML IV ONE (15:44)
[2016-08-18 16:26] LABS: Basophils # (Auto) 0 K/mcL (0.0-0.3); Basophils % (Auto) 0.3 % (0.0-2.0); Eosinophils # (Auto) 0.5 K/mcL (0.0-0.7); Eosinophils % (Auto) 3.2 % (0.0-7.0); Granulocytes % (Auto) 76.3 % (38.0-78.0); Lymphocytes # (Auto) 1.8 K/mcL (1.5-4.8); Lymphocytes % (Auto) 11.6 % (15.5-49.0); Mean Cell Volume 86.3 fL (80.0-100.0); Mean Corpuscular HGB Conc 31.5 g/dL (31.0-36.0); Mean Corpuscular Hemoglobin 27.1 pg (26.0-34.0); Monocytes # (Auto) 1.3 K/mcL (0.1-0.9); Monocytes % (Auto) 8.6 % (1.0-12.0); Platelet Count 393 K/mcL (140-440); RBC 4.38 M/mcL (4.00-5.20)
--- NOTE | 2016-08-18 16:45 | Emergency Department Note ---
[id number]: c-diff Time Seen by Provider: 08/18/16 16:32 Source: patient Mode of arrival: EMS Limitations: no limitations - History of Present Illness HPI Narrative: Patient was seen in the hospital in June and diagnosed as having lung cancer , metastatic to liver. She's currently on hospice at home, but the diarrhea has worsened to the point where the son who is caregiver is unable to handle taking care of her. MD complaint: nausea, vomiting, diarrhea - Related Data Home Medications Medication Instructions Recorded Confirmed Aspirin [Lite Coat Aspirin] 325 mg PO DAILY 08/18/16 08/18/16 Allergies Allergy/AdvReac Type Severity Reaction Status Date / Time codeine AdvReac Mild Drowsy Verified 07/15/16 16:27 Review of Systems Limitations: ROS unobtainable due to patients medical condition Past Medical History - Past Medical History Source: old records reviewed Medical history: Reports: hypertension, valvular heart disease (rheumatic fever) , other (recently diagnosed lung cancer) Surgical history ED: Reports: appendectomy, hysterectomy, other (History of stomach surgery with partial stomach resection.) Family history: Reports: no significant family history - Social History smoking status: Current every day smoker Alcohol use: Reports: None Drug use: Reports: none Physical Exam - General Limitations: no limitations General appearance: alert, lethargic - Head Head exam: atraumatic, normocephalic - Eye Eye exam: Present: normal appearance, PERRL, EOMI. Absent: conjunctival injection - ENT ENT exam: mucous membranes dry - Neck Neck exam: Present: normal inspection, full ROM, trachea midline - Chest Chest inspection: Present: normal inspection, symmetric chest wall rise - Respiratory Respiratory exam: Present: normal lung sounds bilaterally. Absent: respiratory distress, wheezes - Cardiovascular Cardiovascular exam: Present: regular rate, normal rhythm, systolic murmur - Abdominal Exam Abdominal exam: Present: soft, guarding. Absent: distention, tenderness - Rectal Exam Rectal exam: Present: deferred - Back Exam Back exam: Present: normal inspection - Neurological Exam Neurological exam: Present: alert, other ( weeks speech, pale appearingmoving all fours appropriately but generally weak in all fours.) - Psychiatric Psychiatric exam: Present: flat affect - Skin Skin exam: Present: warm, dry, pallor Course - Reevaluation(s) Reevaluation #1: patient is being admitted now, she does have a DNR order, but family is not able to handle her at home right now given that she has horrible diarrhea. They wish the diarrhea problem to at least. Handled in the hospital. She still wishes to stay on hospice and as far as I was informed she can remain on hospice and still be in the hospital addressing other issues. Hospice is more for pain control, comfort measures and for hercancer diagnosis. Vital Signs Temperature 98.4 F 08/18/16 15:26 Pulse Rate 89 08/18/16 15:26 Respiratory Rate 16 08/18/16 15:26 Blood Pressure 150/77 08/18/16 15:26 Pulse Oximetry (%) 99 08/18/16 15:26 Temperature 98.4 F 08/18/16 15:26 Pulse Rate 82 08/18/16 16:45 Respiratory Rate 16 08/18/16 15:26 Blood Pressure 137/54 08/18/16 16:45 Pulse Oximetry (%) 99 08/18/16 16:45 Nausea/Vomiting/Diarrhea - [facility] Narrative Medical decision making narrative: hospital admission is forC. difficile diarrhea. - Lab Data Result diagrams: 08/18/16 15:47 08/18/16 15:47 Lab Results 08/18/16 08/18/16 Range/Units 15:47 15:47 WBC 15.6 H (4.5-11.0) K/mcL RBC 4.38 (4.00-5.20) M/mcL Hgb 11.9 L (12.0-15.0) g/dL Hct 37.8 (36.0-48.0) % MCV 86.3 (80.0-100.0) fL MCH 27.1 (26.0-34.0) pg MCHC 31.5 (31.0-36.0) g/dL RDW 14.0 (11.5-14.5) % Plt Count 393 (140-440) K/mcL MPV 7.9 (7.4-10.4) fL Gran % 76.3 (38.0-78.0) % Lymph % (Auto) 11.6 L (15.5-49.0) % [place] % (Auto) 8.6 (1.0-12.0) % Eos % (Auto) 3.2 (0.0-7.0) % Baso % (Auto) 0.3 (0.0-2.0) % Gran # 11.9 H (1.8-8.0) K/mcL Lymph # 1.8 (1.5-4.8) K/mcL [place] # 1.3 H (0.1-0.9) K/mcL Eos # 0.5 (0.0-0.7) K/mcL Baso # 0 (0.0-0.3) K/mcL Sodium 135 (133-145) mmol/L Potassium 4.7 (3.3-5.1) mmol/L Chloride 95 L (96-108) mmol/L Carbon Dioxide 19 L (22-30) mmol/L Anion Gap 21.0 H (8-16) BUN 31 H (8-23) mg/dl Creatinine 1.1 (0.6-1.1) mg/dl GFR Calculation 46 Glucose 95 (70-105) mg/dL Calcium 9.2 (8.6-10.4) mg/dl Total Bilirubin 0.3 (0.0-1.0) mg/dL AST 15 (0-37) U/l ALT 9 (0-40) U/l Alkaline Phosphatase 105 (39-117) U/L Total Protein 6.7 (5.9-8.4) gm/dL Albumin 3.1 L (3.2-5.2) gm/dL Globulin 3.6 (2.2-3.7) gm/dL Albumin/Globulin Ratio 0.9 L (1.0-2.3) Disposition Clinical Impression: Clostridium difficile infection Disposition: Xfer As Inpt ([facility]) Condition: Serious Referrals: No,PCP [Primary Care Provider] -
[2016-08-18 16:53] LABS: ALT/SGPT 9 U/l (0-40); Albumin 3.1 gm/dL (3.2-5.2); Albumin/Globulin Ratio 0.9 (1.0-2.3); Alkaline Phosphatase 105 U/L (39-117); Blood Urea Nitrogen 31 mg/dl (8-23)
[2016-08-18] MEDS ORDERED: VANCOMYCIN ORAL SOL 1,000 MG/10 ML BOTTLE PO SCH (17:00)
[2016-08-18 17:19] LABS: C-Reactive Protein 10.2 mg/dl (0.0-0.8)
[2016-08-18] MEDS ORDERED: ACETAMINOPHEN 1,000 MG/100 ML BOTTLE IV PRN (18:18)
[2016-08-18] MEDS ORDERED: traZODone HCL 50 MG TABLET PO PRN (18:18)
[2016-08-18] MEDS ORDERED: ONDANSETRON 4 MG/2 ML VIAL IV PRN (18:18)
[2016-08-18] MEDS ORDERED: POTASSIUM CHLORIDE 20 MEQ PACKET PO PRN (18:18)
[2016-08-18] MEDS ORDERED: MAGNESIUM SULFATE 2 GM/50 ML BAG IV PRN (18:18)
[2016-08-18] MEDS ORDERED: ACETAMINOPHEN 325 MG TABLET PO PRN (18:18)
[2016-08-18] MEDS: LACTATED RINGERS 1,000 ML IV SCH (18:20)
--- NOTE | 2016-08-18 20:26 | History and Physical Report ---
DATE OF ADMISSION: 08/18/2016 DATE OF ADMISSION: 08/18/2016 PRIMARY CARE PHYSICIAN: None. REASON FOR ADMISSION: Worsening diarrhea. HISTORY OF CHIEF COMPLAINT: Ms. Leiva is an 85-year-old who was recently admitted during late June and was diagnosed with C. difficile and she was discharged on oral vancomycin. However, over the last few days she has had relentless diarrhea wherein family is unable to take care of her. She comes into [facility]. Initial workup was significant for a white count over 15,000 along with C. difficile positive stool. Hospitalist Service was consulted. Notably, the patient was recently diagnosed with metastatic lung cancer and pulmonary embolism. The patient subsequently chose to go for hospice. At this time, patient and family would want her diarrhea to be treated while she will continue hospice treatment and no further workup for metastatic lung and liver tumor. At the time of examination, the patient appears very fatigued and lethargic but she was able to answer some of the questions. She denies abdominal pain but she endorses dizziness, lightheadedness, fever, weakness and unable to function. She has been bedridden over the last few days. REVIEW OF SYSTEMS: A 10-point review of system was performed and negative except the ones discussed above. PAST MEDICAL HISTORY: 1. 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 2. Recent pulmonary embolism; however, the patient stopped taking Coumadin and currently on aspirin in light of hospice. 3. Chronic back pain. 4. Recent C. diff. CURRENT MEDICATION: Aspirin 325 mg daily. SOCIAL HISTORY: No history of smoking. Currently residing along with her son. She is a DNR. FAMILY HISTORY: Not relevant to presenting symptoms. PHYSICAL EXAMINATION: GENERAL: The patient is emaciated with a BMI of 15.9, very weak, lethargic. VITAL SIGNS: Blood pressure 137/54, respiration rate 16, temperature 98.4, pulse 89, sats 99 percent on room air. HEENT: Pupils symmetric. Oral cavity dry. No ear or nose discharge. Head normocephalic and atraumatic. NECK: No lymphadenopathy. HEART: S1, S2, regular rhythm. No murmur. CHEST: Clear to auscultation, diminished breath sounds at bases. ABDOMEN: Soft and nontender. LOWER EXTREMITIES: Significant muscle wasting, but no cyanosis or clubbing. No joint swelling, no edema. SKIN: No suspicious lesions. PSYCHIATRIC: Fatigued, lethargic. NEUROLOGIC: Nonfocal, visually impaired. LABS AND IMAGING: White count 15.6, hemoglobin 11.9, platelets 393. INR 1.2. Sodium 135, potassium 4.7, creatinine 1.1, BUN 31, CRP 10.6. ASSESSMENT AND PLAN: An 85-year-old admitted with recurrent Clostridium difficile along with sepsis. 1. Recurrent Clostridium difficile enterocolitis. Start patient on oral vancomycin 250 4 times a day. 2. Severe sepsis. Continue crystalloids. Management per guidelines. Admit as inpatient. 3. Severe diarrhea with volume depletion. Continue Clostridium difficile management along with electrolytes and crystalloid replacement on lactated Ringer's. 4. History of pulmonary embolus. The patient chose to continue aspirin after she has been on hospice. 5. Pain management will be continued on as-needed opioids. PLAN FOR TODAY: 1. Admit as inpatient for C. difficile management and sepsis. 2. Oral vancomycin. 3. Crystalloids. The patient will require a minimum of 48 hours admission in light of severe C. difficile, diarrhea, and sepsis. AA:nivia Job ID: [id number] Doc ID: [id number] Bahman MICHEL
[2016-08-18] MEDS ORDERED: VANCOMYCIN 250 MG CAPSULE PO SCH (21:00)
[2016-08-18] MEDS: HEPARIN 5,000 UNIT/ML VIAL SQ SCH (21:42)
[2016-08-18] MEDS: 0.9 % SODIUM CHLORIDE 10 ML SYRINGE IV SCH (21:56)
[2016-08-18] MEDS ORDERED: VANCOMYCIN 500 MG VIAL ONE (22:26)
[2016-08-18] MEDS: VANCOMYCIN ORAL SOL 1,000 MG/10 ML BOTTLE PO SCH (23:17)
[2016-08-19] MEDS: 0.9 % SODIUM CHLORIDE 10 ML SYRINGE IV SCH ×3 (05:10→23:17)
[2016-08-19] MEDS: LACTATED RINGERS 1,000 ML IV SCH ×2 (05:18→15:28)
[2016-08-19 06:16] LABS: Mean Cell Volume 85.6 fL (80.0-100.0); Mean Corpuscular HGB Conc 32.3 g/dL (31.0-36.0); Mean Corpuscular Hemoglobin 27.7 pg (26.0-34.0); Platelet Count 310 K/mcL (140-440); RBC 3.66 M/mcL (4.00-5.20)
[2016-08-19 06:35] LABS: ALT/SGPT 6 U/l (0-40); Albumin 2.2 gm/dL (3.2-5.2); Albumin/Globulin Ratio 0.7 (1.0-2.3); Alkaline Phosphatase 88 U/L (39-117); Bilirubin,Direct < 0.2 mg/dL (0.0-0.3); Blood Urea Nitrogen 25 mg/dl (8-23); Gamma Glutamyl Transpeptidase 27 U/L (5-36); Magnesium 1.9 mg/dL (1.6-2.5); Uric Acid 5.9 mg/dL (2.5-8.0)
[2016-08-19 07:55] LABS: Band Neutrophils % 17 % (0-10); Eosinophils % (Manual) 4 % (0-7); Lymphocytes % 11 % (15-49); Metamyelocytes % 1 % (0-0); Monocytes % (Manual) 8 % (1-12); Platelet Estimate NORMAL (NORMAL); RBC Morphology NORMAL (NORMAL); Segmented Neutrophils % 58 % (38-78)
[2016-08-19] MEDS: HEPARIN 5,000 UNIT/ML VIAL SQ SCH ×2 (08:43→20:33)
[2016-08-19] MEDS: VANCOMYCIN ORAL SOL 1,000 MG/10 ML BOTTLE PO SCH ×4 (12:59→20:33)
--- NOTE | 2016-08-19 13:02 | Internal Med Progress Note ---
Medical - PN: Subj Patient information: Note initiated : 08/19/16 at 12:59 pm Service Date, if different from initiated Date: [] Patient: Mary Lou Leiva 85 y/o F admitted on 08/18/16 for C-Diff/Sepsis. Chief Complaint: [] Interval history: 08/18-patient admitted with severe diarrhea/C. difficile sepsis. Admitted as inpatient. Recurrent nature and hence started on vancomycin 250 4 times a day. continue crystalloids and supportive management. History of squamous cell lung cancer with metastasis. Patient has been on hospice in light of metastatic cancer but expressed desires to treat C. difficile/sepsis. 08/19- white count down from 15.6-12.1. 17% bands. Diarrhea resolved. On oral vancomycin. Feels a lot better.afebrile and stable hemodynamics. No family at bedside. improve renal function. Creatinine down from 1.1 2.8. Continue diet advancement as tolerated. Anticipate SNF transfer in 24-48 hours if clinically improved. - Constitutional Vitals: Vital Signs Temp Pulse Resp BP Pulse Ox 98.1 F 73 20 120/60 95 08/19/16 11:41 08/19/16 07:19 08/19/16 11:41 08/19/16 11:41 08/19/16 11:41 Period Temp Pulse Resp BP Sys/Floyd Pulse Ox Last 24 Hr 96.4 F-98.3 F 73-84 18-20 118-156/46-67 93-97 Intake and Output 08/18/16 08/19/16 08/19/16 21:59 05:59 13:59 Intake Total 240 / 1240 1100 / 1100 120 / 120 Output Total 2 / 2 2 / 2 Balance 240 / 1240 1098 / 1098 118 / 118 Weight 89 lb Intake & Output: Intake & Output 08/18/16 08/19/16 08/19/16 21:59 05:59 13:59 Intake Total 240 / 1240 1100 / 1100 120 / 120 Output Total 2 / 2 2 / 2 Balance 240 / 1240 1098 / 1098 118 / 118 Weight 89 lb Intake: IV 1000 / 1000 Lactated Ringers 1,000 ml 1000 / 1000 @ 100 mls/hr IV .Q10H [facility] Rx#:[id number] Oral 240 / 240 100 / 100 120 / 120 Output: # of times incontinent of 2 / 2 2 / 2 urine Other: Meal Dinner Breakfast Percent of Meal Consumed 25% 50% Feeding Ability Total Assistance Independent # Voids 2 General appearance: cooperative, no acute distress Exam: lert oriented fatigued and lethargic Significant muscle wasting nondistended abdomen Medical - PN: Obj Da - Labs CBC & Chem 7: 08/19/16 05:05 08/19/16 05:05 Labs: Abnormal Lab Results 08/19/16 08/19/16 05:05 05:05 WBC 12.1 H RBC 3.66 L Hgb 10.1 L Hct 31.3 L Band Neutrophils % 17 H Lymphocytes % 11 L Metamyelocytes % 1 H Carbon Dioxide 21 L BUN 25 H Calcium 8.5 L Lactate Dehydrogenase 255 H Total Protein 5.3 L Albumin 2.2 L Albumin/Globulin Ratio 0.7 L Meds: Medications Acetaminophen (Tylenol) 650 mg PO Q4-6HP PRN PRN Reason: PAIN/FEVER > 101 Heparin Sodium (Porcine) (Heparin) 5,000 unit SQ Q12 [facility] Last Admin: 08/19/16 08:43 Dose: 5,000 unit Lactated Ringer's (Lactated Ringers) 1,000 mls @ 100 mls/hr IV .Q10H [facility] Stop: 08/20/16 00:17 Last Admin: 08/19/16 05:18 Dose: 100 mls/hr Magnesium Sulfate (Magnesium Sulfate) 2 gm in 50 mls @ 50 mls/hr IV UD PRN PRN Reason: MG = or < 1.7 Acetaminophen (Ofirmev) 1,000 mg in 100 mls @ 200 mls/hr IV Q6HP PRN PRN Reason: PAIN/FEVER > 101 Ondansetron HCl (Zofran) 4 mg IV Q4-6HP PRN PRN Reason: Nausea And Vomiting Potassium Chloride (Klor-Con) 40 meq PO DAILYP PRN PRN Reason: K+ < 3.5 Sodium Chloride (Saline Flush) 10 ml IV Q8 [facility] Last Admin: 08/19/16 05:10 Dose: Not Given Trazodone HCl (Desyrel) 50 mg PO HSP PRN PRN Reason: Insomnia Vancomycin HCl (Vancomycin Oral Raya) 250 mg PO QID [facility] Last Admin: 08/18/16 23:17 Dose: Not Given Medical - PN: A/P - Time Spent With Patient Total time spent is greater than 50% in coordination of care (as documented) at patient's floor/unit and/or counseling patient: 25 - 35 minutes (1) Clostridium difficile infection Status: Acute Assessment and plan: * Recurrent C. difficile. Continue oral vancomycin. * Sepsis-secondary to above.clinically improving. improving end organ dysfunction * metastatic lung cancer-on hospice care. Plan * continue oral vancomycin 4 times a day * Crystalloids and supportive management * possible discharge in 24-48 hours Current Visit: Yes Medical - PN: Qual - VTE Deep Vein Thrombosis/Pulmonary Embolism Present on Admission: No
[2016-08-20 05:44] LABS: Mean Cell Volume 86.2 fL (80.0-100.0); Mean Corpuscular HGB Conc 31.8 g/dL (31.0-36.0); Mean Corpuscular Hemoglobin 27.4 pg (26.0-34.0); Platelet Count 300 K/mcL (140-440); RBC 3.87 M/mcL (4.00-5.20)
[2016-08-20] MEDS: 0.9 % SODIUM CHLORIDE 10 ML SYRINGE IV SCH (05:49)
[2016-08-20 06:19] LABS: ALT/SGPT 7 U/l (0-40); Albumin 2.3 gm/dL (3.2-5.2); Albumin/Globulin Ratio 0.7 (1.0-2.3); Alkaline Phosphatase 90 U/L (39-117); Bilirubin,Direct < 0.2 mg/dL (0.0-0.3); Blood Urea Nitrogen 17 mg/dl (8-23); Gamma Glutamyl Transpeptidase 27 U/L (5-36); Magnesium 1.7 mg/dL (1.6-2.5); Uric Acid 4.7 mg/dL (2.5-8.0)
[2016-08-20] MEDS: HEPARIN 5,000 UNIT/ML VIAL SQ SCH (09:19)
[2016-08-20] MEDS: VANCOMYCIN ORAL SOL 1,000 MG/10 ML BOTTLE PO SCH ×2 (09:20→13:06)
[2016-08-20 09:55] LABS: Band Neutrophils % 19 % (0-10); Eosinophils % (Manual) 3 % (0-7); Lymphocytes % 10 % (15-49); Metamyelocytes % 1 % (0-0); Monocytes % (Manual) 3 % (1-12); Myelocytes % 1 % (0-0); Platelet Estimate NORMAL (NORMAL); RBC Morphology NORMAL (NORMAL); Segmented Neutrophils % 63 % (38-78)
--- NOTE | 2016-08-20 11:22 | Internal Med Progress Note ---
Medical - PN: Subj Patient information: Note initiated : 08/20/16 at 11:19 am Service Date, if different from initiated Date: [] Patient: Mary Lou Leiva 85 y/o F admitted on 08/18/16 for C-Diff/Sepsis. Chief Complaint: [] Interval history: 08/18-patient admitted with severe diarrhea/C. difficile sepsis. Admitted as inpatient. Recurrent nature and hence started on vancomycin 250 4 times a day. continue crystalloids and supportive management. History of squamous cell lung cancer with metastasis. Patient has been on hospice in light of metastatic cancer but expressed desires to treat C. difficile/sepsis. 08/19- white count down from 15.6-12.1. 17% bands. Diarrhea resolved. On oral vancomycin. Feels a lot better.afebrile and stable hemodynamics. No family at bedside. improve renal function. Creatinine down from 1.1 2.8. Continue diet advancement as tolerated. Anticipate SNF transfer in 24-48 hours if clinically improved. 08/20- no episode of diarrhea. Patient clinically improving. On crystalloids and oral vancomycin. No fever chills abdominal pain and anxiety nausea vomiting. white count at 14.3 down from 15.6. improving renal function. afebrile and stable hemodynamics. No concerns per staff. Case discussed with patient's family including son and daughter. - Constitutional Vitals: Vital Signs Temp Pulse Resp BP Pulse Ox 98.6 F 92 H 24 121/59 93 08/20/16 06:24 08/20/16 04:00 08/20/16 06:24 08/20/16 06:24 08/20/16 06:24 Period Temp Pulse Resp BP Sys/Floyd Pulse Ox Last 24 Hr 97.0 F-98.8 F 76-92 14-24 116-138/59-78 92-95 Intake and Output 08/19/16 08/20/16 08/20/16 21:59 05:59 13:59 Intake Total 1300 / 1300 1250 / 1250 Output Total 2 / 2 Balance 1299 / 1299 1249 / 1249 -2 / -2 Weight 96 lb Intake & Output: Intake & Output 08/19/16 08/20/16 08/20/16 21:59 05:59 13:59 Intake Total 1300 / 1300 1250 / 1250 Output Total 2 / 2 Balance 1299 / 1299 1249 / 1249 -2 / -2 Weight 96 lb Intake: IV 1000 / 1000 1000 / 1000 Lactated Ringers 1,000 ml 1000 / 1000 1000 / 1000 @ 100 mls/hr IV .Q10H [facility] Rx#:[id number] Oral 300 / 300 250 / 250 Output: # of times incontinent of 1 / 2 / 2 urine Other: Meal Dinner Percent of Meal Consumed 25% Feeding Ability Total Assistance # Voids 1 General appearance: cooperative, no acute distress Exam: resting comfortably nonlabored breathing Medical - PN: Obj Da - Labs CBC & Chem 7: 08/20/16 04:25 08/20/16 04:25 Labs: Abnormal Lab Results 08/20/16 08/20/16 08/19/16 04:25 04:25 05:05 WBC 14.3 H RBC 3.87 L Hgb 10.6 L Hct 33.3 L Band Neutrophils % 19 H Lymphocytes % 10 L Metamyelocytes % 1 H Myelocytes % 1 H Carbon Dioxide 21 L BUN 25 H Calcium 8.3 L 8.5 L Phosphorus 2.5 L Lactate Dehydrogenase 304 H 255 H Total Protein 5.4 L 5.3 L Albumin 2.3 L 2.2 L Albumin/Globulin Ratio 0.7 L 0.7 L 08/19/16 05:05 WBC 12.1 H RBC 3.66 L Hgb 10.1 L Hct 31.3 L Band Neutrophils % 17 H Lymphocytes % 11 L Metamyelocytes % 1 H Myelocytes % Carbon Dioxide BUN Calcium Phosphorus Lactate Dehydrogenase Total Protein Albumin Albumin/Globulin Ratio Meds: Medications Acetaminophen (Tylenol) 650 mg PO Q4-6HP PRN PRN Reason: PAIN/FEVER > 101 Heparin Sodium (Porcine) (Heparin) 5,000 unit SQ Q12 [facility] Last Admin: 08/20/16 09:19 Dose: 5,000 unit Magnesium Sulfate (Magnesium Sulfate) 2 gm in 50 mls @ 50 mls/hr IV UD PRN PRN Reason: MG = or < 1.7 Acetaminophen (Ofirmev) 1,000 mg in 100 mls @ 200 mls/hr IV Q6HP PRN PRN Reason: PAIN/FEVER > 101 Ondansetron HCl (Zofran) 4 mg IV Q4-6HP PRN PRN Reason: Nausea And Vomiting Potassium Chloride (Klor-Con) 40 meq PO DAILYP PRN PRN Reason: K+ < 3.5 Sodium Chloride (Saline Flush) 10 ml IV Q8 [facility] Last Admin: 08/20/16 05:49 Dose: 10 ml Trazodone HCl (Desyrel) 50 mg PO HSP PRN PRN Reason: Insomnia Vancomycin HCl (Vancomycin Oral Raya) 250 mg PO QID [facility] Last Admin: 08/20/16 09:20 Dose: 2.5 ml Medical - PN: A/P - Time Spent With Patient Total time spent is greater than 50% in coordination of care (as documented) at patient's floor/unit and/or counseling patient: 15 - 24 minutes (1) Clostridium difficile infection Status: Acute Assessment and plan: * Recurrent C. difficile. Continue oral vancomycin. * Sepsis-secondary to above.White count downtrending. * severe diarrhea -fully resolved. * mild BIJAL-clinically improved with crystalloids * metastatic lung cancer-on hospice care. Plan * Continue oral vancomycin 4 times a day * Crystalloids and supportive management * Possible discharge in 24 hours Current Visit: Yes Medical - PN: Qual - VTE Deep Vein Thrombosis/Pulmonary Embolism Present on Admission: No
--- NOTE | 2016-08-20 12:35 | Discharge Summary ---
Medical - DS: Prov Patient information: Note initiated : 08/20/16 at 12:34 pm Service Date, if different from initiated Date: [] Patient: Mary Lou Leiva 85 y/o F admitted on 08/18/16 for C-Diff/Sepsis. Chief Complaint: [] Date of admission: 08/18/16 17:58 Discharge date: 08/20/16 Primary care physician: [f_Reg Prim Care Provider] Consults: 08/20/16 11:31 Consult to Physician [CONS] Routine Comment: Consulting Provider: [facility] Reason For Exam: Physician to Consult Medical - DS: Meds - Discharge Medications Prescriptions: Vancomycin Oral Raya 250 mg PO QID #56 bottle Active and Home Medications: Home Medications Aspirin [Lite Coat Aspirin] 325 mg PO DAILY 08/18/16 [History Confirmed Last Taken Unknown] Vancomycin Oral Raya 250 mg PO QID #56 bottle 08/20/16 [Rx Last Taken Unknown] Medical - DS: Hosp Hospital course: For detail of hospital course please refer to progress note dated 08/20 Discharge diagnosis: C. difficile diarrhea with sepsis - Time Spent with Patient Total time spent providing and/or coordinating discharge services: Medical - DS: Exam - Constitutional Vitals: Vital Signs Temp Pulse Resp BP BP Pulse Ox 08/20/16 12:16 98.9 F 80 20 138/56 92 08/20/16 06:24 98.6 F 24 121/59 93 08/20/16 04:00 97.8 F 92 H 14 138/62 94 08/20/16 00:00 97.0 F L 76 14 132/68 92 08/19/16 19:43 80 16 130/60 94 08/19/16 16:26 98.8 F 20 116/78 92 Intake and Output 08/19/16 08/20/16 08/20/16 21:59 05:59 13:59 Intake Total 1300 / 1300 1250 / 1250 Output Total 2 / 2 Balance 1299 / 1299 1249 / 1249 -2 / -2 Intake: IV 1000 / 1000 1000 / 1000 Lactated Ringers 1,000 ml 1000 / 1000 1000 / 1000 @ 100 mls/hr IV .Q10H [facility] Rx#:[id number] Oral 300 / 300 250 / 250 Output: # of times incontinent of 2 / 2 urine Other: Meal Dinner Percent of Meal Consumed 25% Feeding Ability Total Assistance # Voids 1 Weight 96 lb Medical - DS: Data Labs on day of discharge: Labs from last 24 hours 08/20/16 08/20/16 04:25 04:25 WBC 14.3 H RBC 3.87 L Hgb 10.6 L Hct 33.3 L MCV 86.2 MCH 27.4 MCHC 31.8 RDW 14.0 Plt Count 300 MPV 8.0 Total Counted 100 Seg Neutrophils % 63 Band Neutrophils % 19 H Lymphocytes % 10 L Monocytes % (Manual) 3 Eosinophils % (Manual) 3 Metamyelocytes % 1 H Myelocytes % 1 H Platelet Estimate Normal RBC Morphology Normal Sodium 134 Potassium 4.4 Chloride 98 Carbon Dioxide 24 Anion Gap 12.0 BUN 17 Creatinine 0.7 GFR Calculation 80 Glucose 78 Uric Acid 4.7 Calcium 8.3 L Phosphorus 2.5 L Magnesium 1.7 Total Bilirubin 0.3 Direct Bilirubin < 0.2 GGT 27 AST 15 ALT 7 Alkaline Phosphatase 90 Lactate Dehydrogenase 304 H Total Protein 5.4 L Albumin 2.3 L Globulin 3.1 Albumin/Globulin Ratio 0.7 L Triglycerides 130 Medical - DS: A/P - Patient/Caregiver Discharge Instructions Activity: increase activity as tolerated Diet: Regular Diet Additional Instructions: continue hospice for end of life care 4 times a day oral vancomycin for 14 days Prescriptions: Vancomycin Oral Raya 250 mg PO QID #56 bottle - Problem Maintenance (1) Clostridium difficile infection Status: Acute - Follow up Plan Follow up with: No,PCP [Primary Care Provider] - Disposition: [facility] SNF Prognosis: Undetermined Rehab Potential: Undetermined I certify that the patient requires SNF services: No Overall status at discharge: patient is progressing back to baseline Medical - DS: Qual - VTE Deep Vein Thrombosis/Pulmonary Embolism Present on Admission: No
== END 2016-08-20 14:00 | DRG 872 ==
LOC: ED 15:25 → ICU 17:55 → MEDSUR 20:48
PROVIDERS: ADMIT Internal Medicine; ATTEND Internal Medicine